=== PATIENT | male | born 1970 | race Caucasian/White ===

== ENCOUNTER 2019-10-27 20:19 | Emergency (ER) | payer SELFPAY ==
[~2019-10-27] VITALS: Ht 175.3 cm; Wt 93.0 kg
[2019-10-27 23:14] VITALS: BP 144/79
== END 2019-10-27 23:15 | disposition home or self-care (01) ==
LOC: ER 20:19
DX: R50.9 Fever, unspecified (principal); I10 Essential (primary) hypertension; Z03.818 Encounter for observation for suspected exposure to other biological agents ruled out
CPT/HCPCS: 99283; C9803; U0003; 99282